=== PATIENT | female | born 1945 | race Caucasian/White ===

== ENCOUNTER 2016-11-16 20:17 | Inpatient (IN) ==
[2016-11-16 20:57] LABS: Basophils % 0.2 %; Eosinophils # 0.1 K/mcL (0.0-0.6); Eosinophils % 1.7 %; Hematocrit 38.9 % (35.3-44.9); Hemoglobin 12.9 g/dL (11.5-15.4); Immature Granulocytes % 0.4 % (0-4); Lymphocytes # 1.7 K/mcL (0.6-4.6); Lymphocytes % 30.4 %; Mean Corpuscular HGB Conc 33.2 g/dL (31.6-35.5); Mean Corpuscular Hemoglobin 28.5 pg (28.0-33.3); Mean Corpuscular Volume 86.1 fL (83.0-100.0); Mean Platelet Volume 10.9 fL (9.4-12.4); Monocytes # 0.4 K/mcL (0.0-1.3); Monocytes % 6.8 %; Neutrophils # 3.3 K/mcL (1.6-8.9); Platelet Count 100 K/mcL (140-400); Red Blood Count 4.52 M/mcL (3.82-4.97); Red Cell Distribution Width 12.8 % (11.5-14.5); Segmented Neutrophils % 60.5 %
[2016-11-16 21:11] LABS: Albumin 3.1 g/dL (3.5-5.0); Albumin/Globulin Ratio 0.8 (1.1-2.2); Bilirubin,Direct 0.2 mg/dL (0.0-0.5); Bilirubin,Indirect 0.1 mg/dL (0.0-1.2); Bilirubin,Total 0.3 mg/dL (0.2-1.2); Calcium 9.2 mg/dL (8.6-10.8); Globulin 3.7 g/dL (2.4-3.5); Potassium 3.5 mEq/L (3.5-4.5); Total Protein 6.8 g/dL (6.0-8.3)
[2016-11-16 21:17] LABS: Bilirubin,Urine Negative (Negative); Blood,Urine Negative (Negative); Clarity,Urine Cloudy (Clear); Color,Urine Dark Yellow (Yellow); Glucose,Urine (UA) 500 mg/dL (Normal); Ketones,Urine Negative (Negative); Leukocyte Esterase,Urine Moderate (Negative); Nitrite,Urine Negative (Negative); Protein,Urine Trace mg/dL (Neg-Trace); Specific Gravity,Urine > 1.030 (1.010-1.025); Urobilinogen,Urine Normal (Normal)
[2016-11-16 21:20] LABS: Bacteria,Urine Moderate per hpf (None-Few); Hyaline Casts,Urine None Seen per lpf (None-Few); RBC,Urine 0-3 per hpf (0-3); Squamous Epithelial Cell,Urine Many per lpf (None-Few); WBC,Urine 50-100 per hpf (0-3)
[2016-11-16] MEDS ORDERED: MetroNIDAZOLE 500 MG/100 ML 500 MG/100 ML BAG IVPB ONE (22:02)
[2016-11-16] MEDS ORDERED: *HR* Morphine 2 MG/ML SYRINGE IVP ONE (22:02)
--- NOTE | 2016-11-16 22:06 | Emergency Department Note ---
START Narrative - START START: I, Alvaro Quesada, examined this patient and my medical decision-making was reviewed with the [employer] WINDER OPERATOR/PA/Advanced Practice Nurse/Resident Physician. I agree with the documented findings, disposition and treatment plan as described except to the extent set forth below. 70-year-old female presents with concerns of right lower quadrant abdominal pain. Patient states that she is unable to tolerate by mouth intake over the past few days secondary to her pain. Patient denies dysuria, hematuria, vaginal bleeding, vaginal discharge. She denies hematochezia. She does state that she has had one episode of dark stool however she thinks it was after taking Pepto-Bismol. Patient denies near syncopal symptoms, chest pain, shortness of breath. She does feel increasingly weak and fatigued over the past few days. Patient has tenderness to palpation of the right lower quadrant on exam. There is mild guarding without evidence of rigidity or rebound. CT of the abdomen shows acute uncomplicated diverticulitis. Patient will be started on Cipro and Flagyl emergency department. She will be admitted to hospital for further care and evaluation as she is not tolerating by mouth intake well at home.
[2016-11-16] MEDS ORDERED: *HR* HYDROmorphone (PF) 1 MG/ML SYRINGE IVP ONE (22:20)
[2016-11-16] MEDS ORDERED: Levofloxacin 750 MG/150 ML 750 MG/150 ML BAG IVPB ONE (22:22)
--- NOTE | 2016-11-16 22:36 | Emergency Department Note ---
Disposition Clinical Impression: Nausea Diverticulitis Qualifiers: Diverticulitis site: small intestine Diverticulitis bleeding: without bleeding Diverticulitis complication: without perforation or abscess Qualified Code(s): K57.12 - Diverticulitis of small intestine without perforation or abscess without bleeding Diarrhea Qualifiers: Diarrhea type: infectious Qualified Code(s): A09 - Infectious gastroenteritis and colitis, unspecified Abdominal pain Qualifiers: Abdominal location: lower abdomen, unspecified Qualified Code(s): R10.30 - Lower abdominal pain, unspecified Disposition: Admitted As Inpatient Condition: Fair Time of Disposition: 22:00 Abdominal Pain HPI - General Chief Complaint: ED Abdominal Pain Stated Complaint: lower abd pain Time Seen by Provider: 11/16/16 20:53 Source: patient Nursing Notes Reviewed: Yes Vital Signs Reviewed: Yes - History of Present Illness HPI Narrative: Patient is a 70-year-old female with a history of asthma, diabetes and renal insufficiency. Patient states that 3 days ago she had sudden onset of diarrhea and lower abdominal pain. Patient states she had 12 bouts diarrhea per day of final brown watery. Patient's daughter states that 1 day ago they went and got anti-diarrheal medication but symptoms worsened. Patient had worsening abdominal pain, and early satiety and onset of nausea. Patient is not to the ED for evaluation. Pain Scale: 7 - Related Data Home Medications Medication Instructions Recorded Confirmed ALPRAZolam [Xanax 0.5 MG Tablet] 0.5 mg PO BID PRN 10/16/16 11/16/16 Albuterol Sulfate [Ventolin Hfa] 2 puff IH Q6H PRN 10/16/16 11/16/16 Ammonium Lactate [Lac-Hydrin Five] 1 appl TP DAILY 10/16/16 11/16/16 Cholecalciferol (Vitamin D3) 1,000 unit PO DAILY 10/16/16 11/16/16 [Vitamin D3] Citalopram Hydrobromide 10 mg PO HS 10/16/16 11/16/16 [Citalopram HBr] Docusate Sodium [Dok] 100 mg PO DAILY 10/16/16 11/16/16 Esomeprazole Magnesium [Nexium] 40 mg PO DAILY 10/16/16 11/16/16 Furosemide [Lasix] 20 mg PO QAM PRN 10/16/16 11/16/16 Gabapentin [Neurontin] 400 mg PO TID 10/16/16 11/16/16 Lidocaine Patch [Lidoderm 5% patch] 1 each TP DAILY PRN 10/16/16 11/16/16 Losartan Potassium [Cozaar] 100 mg PO DAILY 10/16/16 11/16/16 Magnesium Oxide [Mag-Ox] 400 mg PO BID 10/16/16 11/16/16 Saxagliptin HCl [Onglyza] 5 mg PO DAILY 10/16/16 11/16/16 Trazodone HCl 200 mg PO HS 10/16/16 11/16/16 BuPROPion SR (12 HR) [Wellbutrin 150 mg PO BID 11/16/16 11/16/16 SR] Cyclosporine [Restasis] 1 drop PO BID 11/16/16 11/16/16 Donepezil [Aricept] 5 mg PO HS 11/16/16 11/16/16 Melatonin 10 mg PO HS 11/16/16 11/16/16 Previous Rx's Medication Instructions Recorded HYDROcodone/Acet 7.5/325 mg [[place] 1 tab PO TID PRN #15 10/16/16 7.5-325 mg] Allergies Allergy/AdvReac Type Severity Reaction Status Date / Time No Known Allergies Allergy Verified 11/16/16 20:24 Review of Systems: Patient admits abdominal pain, nausea, diarrhea, confusion but denies fever, chills, chest pain, shortness of breath, dysuria, hematuria, hematochezia, melena. All systems ED: reviewed and negative except as stated. Review of Systems: As Per HPI Abdominal Pain PMH - Past Medical History Medical history: Reports: asthma, diabetes, GERD, hyperlipidemia, hypertension, other Female Surgical History: Reports: cholecystectomy, other Psychiatric history: Reports: no psych history - Social History Smoking status: Never smoker Alcohol use: Reports: none Drug use: Reports: none Physical Exam - General Limitations: no limitations General appearance: alert - Head Head exam: atraumatic, normocephalic, normal inspection - Eye Eye exam: Present: normal appearance, PERRL, EOMI - ENT ENT exam: normal exam, normal oropharynx, mucous membranes moist - Neck Neck exam: Present: normal inspection, full ROM, trachea midline - Chest Chest inspection: Present: normal inspection, symmetric chest wall rise - Respiratory Respiratory exam: Present: normal lung sounds bilaterally. Absent: respiratory distress, wheezes - Cardiovascular Cardiovascular exam: Present: regular rate, normal rhythm, normal heart sounds - Abdominal Exam Abdominal exam: Present: soft, tenderness, hyperactive bowel sounds. Absent: distention, guarding, rebound, rigidity Abdominal tenderness: Present: RLQ, LLQ, suprapubic - Extremities Exam Extremities exam: Present: normal inspection, full ROM. Absent: tenderness, pedal edema - Expanded Lower Extremity Exam Hip/Pelvis exam: Present: normal inspection, full ROM Course - Reevaluation(s) Reevaluation #1: Patient seen and examined. Labs and CT abdomen and pelvis ordered. Time: 21:20 Vital Signs Temperature 98.1 F 11/16/16 20:18 Pulse Rate 70 11/16/16 20:18 Respiratory Rate 16 11/16/16 20:18 Blood Pressure 154/83 11/16/16 20:18 O2 Sat by Pulse Oximetry 96 11/16/16 20:18 Temperature 97.5 F L 11/17/16 00:40 Pulse Rate 70 11/17/16 00:40 Respiratory Rate 18 11/17/16 00:40 Blood Pressure 120/71 11/17/16 00:40 O2 Sat by Pulse Oximetry 93 11/17/16 00:40 Oxygen Delivery Oxygen Delivery Room Air Abdominal Pain - MDM Narrative Medical decision making narrative: Patient with lower abdominal pain, diarrhea, nausea 3 days concerning for appendicitis, diverticulitis, colitis, ischemic colitis, C. difficile. CT abdomen and pelvis was taken. Patient showed to have uncomplicated diverticulitis. Patient is started on IV normal saline, Zofran for nausea, Dilaudid for pain, levofloxacin and Flagyl. Patient admitted for continuation treatment. Patient's labs show renal insufficiency and a negative lactate. Patient is admitted and accepted by Dr. Renteria the hospitalist - Lab Data Lab results reviewed: Yes I reviewed the patient's lab results. Lab results narrative: Abdomen/Pelvis CT 11/16/16 21:14 IMPRESSION: Evidence of acute uncomplicated sigmoid colonic diverticulitis. D/ / Lindsey Bazan Cha, MD / Lindsey Bazan Cha, MD Interpreting Provider: Lindsey Bazan Cha, MD Result diagrams: 11/16/16 20:44 11/16/16 20:44 Lab Results 11/16/16 11/16/16 11/16/16 Range/Units 20:44 20:44 21:06 WBC 5.4 (4.3-11.1) K/mcL RBC 4.52 (3.82-4.97) M/mcL Hgb 12.9 (11.5-15.4) g/dL Hct 38.9 (35.3-44.9) % MCV 86.1 (83.0-100.0) fL MCH 28.5 (28.0-33.3) pg MCHC 33.2 (31.6-35.5) g/dL RDW 12.8 (11.5-14.5) % Plt Count 100 L (140-400) K/mcL MPV 10.9 (9.4-12.4) fL Immature Gran % 0.4 (0-4) % Seg Neutrophils % 60.5 % Lymphocytes % 30.4 % Monocytes % 6.8 % Eosinophils % 1.7 % Basophils % 0.2 % Neutrophils # 3.3 (1.6-8.9) K/mcL Lymphocytes # 1.7 (0.6-4.6) K/mcL Monocytes # 0.4 (0.0-1.3) K/mcL Eosinophils # 0.1 (0.0-0.6) K/mcL Basophils # 0.0 (0.0-0.2) K/mcL Sodium 138 (136-145) mEq/L Potassium 3.5 (3.5-4.5) mEq/L Chloride 100 (98-109) mEq/L Carbon Dioxide 30 H (19-29) mEq/L BUN 21 H (7-20) mg/dL Creatinine 1.37 H (0.57-1.11) mg/dL Est GFR ( Amer) 46 L (> 60) Est GFR (Non-Af Amer) 38 L (> 60) BUN/Creatinine Ratio 15 (6-26) Glucose 256 H (70-99) mg/dL Calculated Osmolality 298 (280-300) Lactic Acid (0.5-2.2) mmol/L Calcium 9.2 (8.6-10.8) mg/dL Total Bilirubin 0.3 (0.2-1.2) mg/dL Direct Bilirubin 0.2 (0.0-0.5) mg/dL Indirect Bilirubin 0.1 (0.0-1.2) mg/dL AST 11 (5-34) Units/L ALT 17 (0-55) Units/L Alkaline Phosphatase 65 (38-126) Units/L Serum Total Protein 6.8 (6.0-8.3) g/dL Albumin 3.1 L (3.5-5.0) g/dL Globulin 3.7 H (2.4-3.5) g/dL Albumin/Globulin Ratio 0.8 L (1.1-2.2) Lipase 18 (8-78) Units/L Urine Color Dark Yellow (Yellow) Urine Clarity Cloudy A (Clear) Urine pH 6.0 (5.0-8.0) pH Units Ur Specific [place] > 1.030 H (1.010-1.025) Urine Protein Trace (Neg-Trace) mg/dL Urine Glucose (UA) 500 H (Normal) mg/dL Urine Ketones Negative (Negative) mg/dL Urine Blood Negative (Negative) Urine Nitrite Negative (Negative) Urine Bilirubin Negative (Negative) Urine Urobilinogen Normal (Normal) mg/dL Ur Leukocyte Esterase Moderate H (Negative) Urine Microscopic RBC 0-3 (0-3) per hpf Urine Microscopic WBC 50-100 H (0-3) per hpf Ur Squamous Epith Cells Many H (None-Few) per lpf Urine Bacteria Moderate H (None-Few) per hpf Hyaline Casts None Seen (None-Few) per lpf Ur Culture Indicated? YES A (NO) 11/16/16 Range/Units 22:32 WBC (4.3-11.1) K/mcL RBC (3.82-4.97) M/mcL Hgb (11.5-15.4) g/dL Hct (35.3-44.9) % MCV (83.0-100.0) fL MCH (28.0-33.3) pg MCHC (31.6-35.5) g/dL RDW (11.5-14.5) % Plt Count (140-400) K/mcL MPV (9.4-12.4) fL Immature Gran % (0-4) % Seg Neutrophils % % Lymphocytes % % Monocytes % % Eosinophils % % Basophils % % Neutrophils # (1.6-8.9) K/mcL Lymphocytes # (0.6-4.6) K/mcL Monocytes # (0.0-1.3) K/mcL Eosinophils # (0.0-0.6) K/mcL Basophils # (0.0-0.2) K/mcL Sodium (136-145) mEq/L Potassium (3.5-4.5) mEq/L Chloride (98-109) mEq/L Carbon Dioxide (19-29) mEq/L BUN (7-20) mg/dL Creatinine (0.57-1.11) mg/dL Est GFR ( Amer) (> 60) Est GFR (Non-Af Amer) (> 60) BUN/Creatinine Ratio (6-26) Glucose (70-99) mg/dL Calculated Osmolality (280-300) Lactic Acid 1.3 (0.5-2.2) mmol/L Calcium (8.6-10.8) mg/dL Total Bilirubin (0.2-1.2) mg/dL Direct Bilirubin (0.0-0.5) mg/dL Indirect Bilirubin (0.0-1.2) mg/dL AST (5-34) Units/L ALT (0-55) Units/L Alkaline Phosphatase (38-126) Units/L Serum Total Protein (6.0-8.3) g/dL Albumin (3.5-5.0) g/dL Globulin (2.4-3.5) g/dL Albumin/Globulin Ratio (1.1-2.2) Lipase (8-78) Units/L Urine Color (Yellow) Urine Clarity (Clear) Urine pH (5.0-8.0) pH Units Ur Specific [place] (1.010-1.025) Urine Protein (Neg-Trace) mg/dL Urine Glucose (UA) (Normal) mg/dL Urine Ketones (Negative) mg/dL Urine Blood (Negative) Urine Nitrite (Negative) Urine Bilirubin (Negative) Urine Urobilinogen (Normal) mg/dL Ur Leukocyte Esterase (Negative) Urine Microscopic RBC (0-3) per hpf Urine Microscopic WBC (0-3) per hpf Ur Squamous Epith Cells (None-Few) per lpf Urine Bacteria (None-Few) per hpf Hyaline Casts (None-Few) per lpf Ur Culture Indicated? (NO) - Radiology Data Radiology results reviewed: Yes I reviewed the patient's radiology results. Abdomen/Pelvis CT 11/16/16 21:14
[2016-11-16] MEDS: 0.9 % Sodium Chloride 1,000 ML IVC SCH (23:07)
[2016-11-17] MEDS ORDERED: Naloxone 0.4 MG/ML INJ IVP PRN (00:09)
[2016-11-17] MEDS ORDERED: Ondansetron 4 MG/2 ML VIAL IVP PRN (00:09)
[2016-11-17] MEDS ORDERED: Dextrose Gel 15 GM PO PRN ×2 (00:15)
[2016-11-17] MEDS ORDERED: 0.9 % Sodium Chloride 1,000 ML IVC SCH (00:15)
[2016-11-17] MEDS ORDERED: *HR* Dextrose 50 % in Water (Syg) 50 ML SYRINGE IVP PRN (00:15)
[2016-11-17] MEDS ORDERED: D5% in Water 1,000 ML IVC PRN (00:15)
--- NOTE | 2016-11-17 00:20 | Internal Med History&Physical ---
<Shyam Blackburn - Last Filed: 11/17/16 00:17> Date of Encounter: 11/17/16 Time of Encounter: 00:17 Assessment and Plan (1) Diverticulitis Current visit: Yes Status: Acute 62-year-old female who presents with left lower quadrant stabbing abdominal pain for 3 days with multiple bouts of diarrhea. CT abdomen pelvis shows uncomplicated sigmoid colon diverticulitis Afebrile, WBC within normal limits, lipase within normal limits, lactic acid within normal limits History of CKD, kidney function baseline Hemoglobin within normal limits Plan: IV fluids, Cipro, Flagyl Clear liquid diet Nausea and pain control GI prophylaxis Recommend outpatient colonoscopy 6 weeks after resolution of diverticulitis. We will hold patient's Lasix as she reported multiple bouts of diarrhea. Qualifiers: Diverticulitis site: large intestine Diverticulitis bleeding: without bleeding Diverticulitis complication: without perforation or abscess Qualified Code(s): K57.32 - Diverticulitis of large intestine without perforation or abscess without bleeding (2) Diabetes mellitus Current visit: Yes Status: Acute History of diabetes mellitus Last hemoglobin A1c 6.9 Controlled Plan: Patient will be on a clear liquid diet, diabetic diet. ACHS Low-dose sliding scale insulin with weight-based regimen Qualifiers: Diabetes mellitus type: type 2 Diabetes mellitus complication status: with unspecified complications Diabetes mellitus buttermaker continuous churn insulin use: without correction use Qualified Code(s): E11.8 - Type 2 diabetes mellitus with unspecified complications (3) Dementia Current visit: Yes Status: Acute Patient's history of dementia. On donepezil. Currently alert oriented 3. Plan: Continue donepezil. Qualifiers: Dementia type: unspecified type Dementia behavioral disturbance: without behavioral disturbance Qualified Code(s): F03.90 - Unspecified dementia without behavioral disturbance (4) GERD (gastroesophageal reflux disease) Current visit: Yes Status: Acute Patient's history of gastric reflux Denies epigastric pain. Plan: Pepcid Qualifiers: Esophagitis presence: esophagitis presence not specified Qualified Code(s) : K21.9 - Gastro-esophageal reflux disease without esophagitis (5) Depression with anxiety Current visit: Yes Status: Acute Patient has a history of anxiety and depression. Stable Plan: Continue home medications. (6) DVT prophylaxis Current visit: Yes Status: Acute Heparin subcutaneous (7) Hypertension Current visit: Yes Status: Acute History of hypertension, controlled. Plan: Continue losartan Qualifiers: Hypertension type: essential hypertension Qualified Code(s): I10 - Essential (primary) hypertension Internal Medicine - H&P: HPI Chief complaint: LLQ pain Admitted From: Home Plans for Post Hospital Care: Home History of present illness: Ms. Doe is a 70 year old female with chief complaint of left lower quadrant abdominal pain that started 3 days ago described as stabbing and radiation to the rest of the abdomen. Pain worsens with movement and improved with narcotic pain medication. Patient also had nausea without vomiting and according to patient's daughter Jaylene once her diarrhea for the past 3 days that is watery, nonbloody, non-mucousy. Patient tried Imodium to help the diarrhea however this made symptoms worse. Denies hematochezia, melena. Patient denies fevers, chills, rash, chest pain, shortness of breath, dysuria, urinary frequency, urinary urgency. Patient states last colonoscopy was 20 years ago and she had polyps removed. Denies previous history of diverticulitis. Reports early satiety, and poor oral intake for the last 24 hours. Past Med Surg Social Fam HX - Past Medical History Medical history: asthma, diabetes, GERD, hyperlipidemia, hypertension, other Psychiatric history: no psych history - Past Surgical History Surgical History: appendectomy, cataract, cholecystectomy, orthopedic, other - Social History Smoking Status: Never smoker Smokeless Tobacco Status: No Alcohol use: none Drug use: none - Additional Family History Additional family history: non-contributory Internal Medicine - H&P: Meds ALPRAZolam [Xanax 0.5 MG Tablet] 0.5 mg PO BID PRN 10/16/16 [History] Albuterol Sulfate [Ventolin Hfa] 2 puff IH Q6H PRN 10/16/16 [History] Ammonium Lactate [Lac-Hydrin Five] 1 appl TP DAILY 10/16/16 [History] Cholecalciferol (Vitamin D3) [Vitamin D3] 1,000 unit PO DAILY 10/16/16 [History] Citalopram Hydrobromide [Citalopram HBr] 10 mg PO HS 10/16/16 [History] Docusate Sodium [Dok] 100 mg PO DAILY 10/16/16 [History] Esomeprazole Magnesium [Nexium] 40 mg PO DAILY 10/16/16 [History] Furosemide [Lasix] 20 mg PO QAM PRN 10/16/16 [History] Gabapentin [Neurontin] 400 mg PO TID 10/16/16 [History] HYDROcodone/Acet 7.5/325 mg [[place] 7.5-325 mg] 1 tab PO TID PRN #15 10/16/16 [ Rx] Lidocaine Patch [Lidoderm 5% patch] 1 each TP DAILY PRN 10/16/16 [History] Losartan Potassium [Cozaar] 100 mg PO DAILY 10/16/16 [History] Magnesium Oxide [Mag-Ox] 400 mg PO BID 10/16/16 [History] Saxagliptin HCl [Onglyza] 5 mg PO DAILY 10/16/16 [History] Trazodone HCl 200 mg PO HS 10/16/16 [History] BuPROPion SR (12 HR) [Wellbutrin SR] 150 mg PO BID 11/16/16 [History] Cyclosporine [Restasis] 1 drop PO BID 11/16/16 [History] Donepezil [Aricept] 5 mg PO HS 11/16/16 [History] Melatonin 10 mg PO HS 11/16/16 [History] 3 Allergy/AdvReac Type Severity Reaction Status Date / Time No Known Allergies Allergy Verified 11/16/16 20:24 All Systems PM: A 10-system review of systems was performed and is negative for pertinent findings except as documented above in the HPI. Review of systems: Constitutional: Denies fever, chills HEENT: Denies headache, vision changes, neck pain, sore throat, rhinorrhea Heart: Denies chest pain palpitations Lungs: Denies shortness of breath cough Abdomen: Reports abdominal pain, nausea, diarrhea. Denies vomiting Back: Denies back pain Kidney: Denies dysuria, hematuria Skin: warm and dry Extremities: Denies swelling, pain Neuro: Denies numbness, and tingling - Constitutional Vitals: Temp Pulse Resp BP Pulse Ox 98.1 F 70 18 148/85 96 11/16/16 20:18 11/16/16 20:18 11/17/16 00:08 11/17/16 00:08 11/16/16 20:18 - Other Additional findings: General: Pleasant elderly female without distress HEENT: Head atraumatic, normocephalic, EOMI, PERRLA, neck nontender to palpation , absent lymphadenopathy, Moist Mucous Membranes, Heart: Regular rate and rhythm with no murmur Lungs: Clear to auscultation bilaterally Abdomen: Soft mild tenderness to left lower quadrant palpation, positive bowel sounds, nondistended, absent carting, absent rigidity, absent organomegaly Skin: warm and dry Extremities: 1+ pedal edema bilaterally Neuro: Cranial nerves II through XII intact, UE and LE sensation equal bilaterally, UE and LEstrength 5/5, alert oriented 3, Vascular: Pedal and radial pulses 2 out of 4 Internal Med - H&P Results - Labs CBC & Chem 7: 11/16/16 20:44 11/16/16 20:44 <Stuart Renteria - Last Filed: 11/17/16 04:39> Date of Encounter: 11/17/16 Internal Medicine - H&P: HPI History of present illness: Ms. Doe is a 70 year old female All Systems PM: A 10-system review of systems was performed and is negative for pertinent findings except as documented above in the HPI. - Constitutional Vitals: Temp Pulse Resp BP Pulse Ox 97.5 F L 70 18 120/71 93 11/17/16 00:40 11/17/16 00:40 11/17/16 00:40 11/17/16 00:40 11/17/16 00:40 Internal Med - H&P Results - Labs CBC & Chem 7: 11/16/16 20:44 11/16/16 20:44 - Attending Attestation I examined this patient and my medical decision-making was reviewed with the Resident Physician, Dr. Shyam Blackburn. I agree with the documented findings, disposition and treatment plan as described except to the extent set forth below. I have independently obtained history and examined the patient and my findings are summarized below: Patient presented to the hospital with abdominal pain and nausea and diarrhea. She had taken a course of antibiotics outpatient but her symptoms were getting worse Currently on exam she is in no acute distress, she has mild tenderness in the right lower quadrant. Heart is regular, lungs are clear. Assessment and plan: Acute diverticulitis which failed outpatient treatment. We will admit her to our service, we will treat her with IV Cipro and Flagyl, IV fluids, IV morphine for pain.
[2016-11-17] MEDS: traZODone 50 MG TABLET PO SCH ×2 (02:23→21:01)
[2016-11-17] MEDS: *HR* Morphine 2 MG/ML SYRINGE IVP PRN ×2 (03:09→16:35)
[2016-11-17 05:20] LABS: Mean Corpuscular HGB Conc 33.1 g/dL (31.6-35.5)
[2016-11-17 05:23] LABS: Basophils % 0.2 %; Eosinophils # 0.1 K/mcL (0.0-0.6); Eosinophils % 1.6 %; Hematocrit 35.6 % (35.3-44.9); Hemoglobin 11.8 g/dL (11.5-15.4); Immature Granulocytes % 0.4 % (0-4); Immature Platelets 7.2 % (1.1-6.1); Lymphocytes # 1.5 K/mcL (0.6-4.6); Lymphocytes % 31.4 %; Mean Corpuscular Hemoglobin 28.8 pg (28.0-33.3); Mean Corpuscular Volume 86.8 fL (83.0-100.0); Mean Platelet Volume 11.3 fL (9.4-12.4); Monocytes # 0.3 K/mcL (0.0-1.3); Monocytes % 6.6 %; Neutrophils # 2.9 K/mcL (1.6-8.9); Red Cell Distribution Width 12.7 % (11.5-14.5); Segmented Neutrophils % 59.8 %
[2016-11-17 05:31] LABS: Platelet Count 95 K/mcL (140-400)
[2016-11-17 05:34] LABS: Calcium 8.6 mg/dL (8.6-10.8); Potassium 3.2 mEq/L (3.5-4.5)
[2016-11-17] MEDS: *HR* Heparin 5,000 UNIT/ML VIAL SQ SCH ×3 (05:37→21:00)
[2016-11-17] MEDS ORDERED: Famotidine 20 MG TABLET PO SCH (07:30)
[2016-11-17] MEDS: Cyclosporine [Restasis] OP SCH ×2 (09:23→20:33)
[2016-11-17] MEDS: Magnesium Oxide 400 MG TABLET PO SCH ×2 (09:40→21:01)
[2016-11-17] MEDS: BuPROPion SR (12 HR) 150 MG TABLET PO SCH ×2 (09:40→21:02)
[2016-11-17] MEDS: Ondansetron 4 MG/2 ML VIAL IVP PRN ×2 (09:40→15:35)
[2016-11-17] MEDS: Gabapentin 400 MG CAPSULE PO SCH ×3 (09:40→21:02)
[2016-11-17] MEDS: MetroNIDAZOLE 500 MG/100 ML 500 MG/100 ML BAG IVPB SCH ×3 (09:41→23:34)
[2016-11-17] MEDS: Insulin LISPRO 300 UNITS/3 ML VIAL SQ SCH ×7 (09:55→21:58)
[2016-11-17] MEDS ORDERED: *HR* Promethazine 25 MG/ML VIAL IVP PRN (11:38)
--- NOTE | 2016-11-17 12:41 | Event Note ---
Date of Encounter: 11/17/16 Time of Encounter: 09:20 Patient continues to have lower abdominal pain especially in the right lower quadrant. Also having nausea and vomiting. Has not had a bowel movement yet. Place patient nothing by mouth. IV fluids, continue antibiotics. Antiemetics. And pain control.
[2016-11-17] MEDS: 0.9 % Sodium Chloride w KCl 20 MEQ/1,000 ML MLS IVC SCH ×2 (13:04→23:37)
[2016-11-17] MEDS ORDERED: traZODone 50 MG TABLET PO SCH (21:00)
[2016-11-17] MEDS ORDERED: Insulin LISPRO 300 UNITS/3 ML VIAL SQ SCH (21:00)
[2016-11-17] MEDS: *HR* HYDROcodone/Acet 7.5/325 mg TABLET PO PRN (21:01)
[2016-11-17] MEDS: Melatonin 3 MG TABLET PO SCH (21:02)
[2016-11-17] MEDS: Insulin DETEMIR 100 UNIT/ML X5UNITS SQ SCH (21:57)
[2016-11-18] MEDS: *HR* Heparin 5,000 UNIT/ML VIAL SQ SCH ×3 (06:15→22:03)
[2016-11-18] MEDS: Insulin LISPRO 300 UNITS/3 ML VIAL SQ SCH ×7 (07:48→20:45)
[2016-11-18] MEDS: Cyclosporine [Restasis] OP SCH ×2 (07:58→20:44)
[2016-11-18] MEDS: Magnesium Oxide 400 MG TABLET PO SCH ×2 (07:59→20:43)
[2016-11-18] MEDS: Gabapentin 400 MG CAPSULE PO SCH ×3 (07:59→20:43)
[2016-11-18] MEDS: Famotidine 20 MG TABLET PO SCH (07:59)
[2016-11-18] MEDS: BuPROPion SR (12 HR) 150 MG TABLET PO SCH ×2 (07:59→20:43)
[2016-11-18] MEDS: MetroNIDAZOLE 500 MG/100 ML 500 MG/100 ML BAG IVPB SCH ×2 (08:01→15:38)
[2016-11-18] MEDS: 0.9 % Sodium Chloride w KCl 20 MEQ/1,000 ML MLS IVC SCH (10:54)
--- NOTE | 2016-11-18 12:33 | Internal Med Progress Note ---
Date of Encounter: 11/18/16 Time of Encounter: 09:20 - Assessment and plan (1) Diverticulitis Current Visit: Yes Status: Acute Assessment and plan: Patient with acute uncomplicated sigmoid diverticulitis. Improving clinically. Will start patient on clear liquid diet and advance as tolerated. Continue antibiotics. Continue IV hydration for now. Moderate risk for complications. Qualifiers: Diverticulitis site: large intestine Diverticulitis bleeding: without bleeding Diverticulitis complication: without perforation or abscess Qualified Code(s): K57.32 - Diverticulitis of large intestine without perforation or abscess without bleeding (2) Diabetes mellitus Current Visit: Yes Status: Chronic Assessment and plan: Blood sugars are much better controlled. Continue current insulin regimen. Qualifiers: Diabetes mellitus type: type 2 Diabetes mellitus complication status: with unspecified complications Diabetes mellitus mcc insulin use: without terminal manager use Qualified Code(s): E11.8 - Type 2 diabetes mellitus with unspecified complications (3) Dementia Current Visit: Yes Status: Chronic Assessment and plan: On Aricept. Qualifiers: Dementia type: unspecified type Dementia behavioral disturbance: without behavioral disturbance Qualified Code(s): F03.90 - Unspecified dementia without behavioral disturbance (4) GERD (gastroesophageal reflux disease) Current Visit: Yes Status: Chronic Assessment and plan: Continue Pepcid Qualifiers: Esophagitis presence: esophagitis presence not specified Qualified Code(s) : K21.9 - Gastro-esophageal reflux disease without esophagitis (5) Depression with anxiety Current Visit: Yes Status: Chronic Assessment and plan: Patient uses Xanax as needed and trazodone at home. Continue these medications (6) DVT prophylaxis Current Visit: Yes Status: Acute (7) Hypertension Current Visit: Yes Status: Chronic Assessment and plan: Well-controlled Qualifiers: Hypertension type: essential hypertension Qualified Code(s): I10 - Essential (primary) hypertension - Subjective Interval history: Patient is feeling better today. Feels hungry but pain is better controlled. No new episodes of nausea or vomiting this morning. No episodes of diarrhea. - Constitutional Vitals: Temp Pulse Resp BP Pulse Ox 98.2 F 66 16 132/62 95 11/18/16 10:44 11/18/16 10:44 11/18/16 10:44 11/18/16 10:44 11/18/16 10:44 General appearance: Present: cooperative, A&O X 3, obese, answers questions appropriately - Neck Neck exam general surgery: Present: supple, trachea midline. Absent: lymphadenopathy - Respiratory Respiratory exam: Present: CTAB. Absent: accessory muscle use, rales, rhonchi, wheezes - Cardiovascular Cardiovascular exam: Present: RRR, +S1, +S2. Absent: diastolic murmur, gallop, rubs, systolic murmur - GI/Abdominal GI/Abdominal exam: Present: normal bowel sounds, soft, tenderness, no peritoneal signs. Absent: distended Additional comments: Left lower quadrant tenderness - Extremities Exam Extremities exam: Present: warm, radial pulses palpable and symmetrical. Absent : calf tenderness, cyanotic, pedal edema - Skin Skin exam: Present: dry, intact Internal Medicine: Result - Labs CBC & Chem 7: 11/17/16 03:06 11/17/16 03:06 Consult Discharge Plan - Plan Referrals: Matthew Phelan MD [Primary Care Provider] -
[2016-11-18] MEDS: traZODone 50 MG TABLET PO SCH (20:43)
[2016-11-18] MEDS: *HR* HYDROcodone/Acet 7.5/325 mg TABLET PO PRN (20:43)
[2016-11-18] MEDS: Melatonin 3 MG TABLET PO SCH (20:43)
[2016-11-18] MEDS: Insulin DETEMIR 100 UNIT/ML X5UNITS SQ SCH (20:44)
[2016-11-19] MEDS: MetroNIDAZOLE 500 MG/100 ML 500 MG/100 ML BAG IVPB SCH ×3 (00:01→16:20)
[2016-11-19] MEDS: 0.9 % Sodium Chloride w KCl 20 MEQ/1,000 ML MLS IVC SCH ×3 (05:00→19:22)
[2016-11-19] MEDS: *HR* Heparin 5,000 UNIT/ML VIAL SQ SCH ×2 (05:17→14:04)
[2016-11-19] MEDS: Insulin LISPRO 300 UNITS/3 ML VIAL SQ SCH ×7 (08:49→20:50)
[2016-11-19] MEDS: BuPROPion SR (12 HR) 150 MG TABLET PO SCH ×2 (08:52→20:52)
[2016-11-19] MEDS: Magnesium Oxide 400 MG TABLET PO SCH ×2 (08:52→20:52)
[2016-11-19] MEDS: Famotidine 20 MG TABLET PO SCH (08:53)
[2016-11-19] MEDS: Gabapentin 400 MG CAPSULE PO SCH ×3 (08:53→20:52)
[2016-11-19] MEDS: Cyclosporine [Restasis] OP SCH (08:54)
[2016-11-19] MEDS: *HR* HYDROcodone/Acet 7.5/325 mg TABLET PO PRN (11:02)
[2016-11-19] MEDS ORDERED: *HR* Morphine 2 MG/ML SYRINGE IVP PRN (11:36)
[2016-11-19] MEDS: ALPRAZolam 0.5 MG TABLET PO PRN ×2 (14:04→20:52)
[2016-11-19 16:22] VITALS: BP 161/67
--- NOTE | 2016-11-19 16:49 | Discharge Summary ---
Date of Encounter: 11/20/16 Time of Encounter: 09:00 - Discharge Diagnosis (1) Diverticulitis Priority: Primary Status: Acute Qualifiers: Diverticulitis site: large intestine Diverticulitis bleeding: without bleeding Diverticulitis complication: without perforation or abscess Qualified Code(s): K57.32 - Diverticulitis of large intestine without perforation or abscess without bleeding (2) Diabetes mellitus Priority: Secondary Status: Chronic Qualifiers: Diabetes mellitus type: type 2 Diabetes mellitus complication status: with unspecified complications Diabetes mellitus watermelon inspector insulin use: without fdc use Qualified Code(s): E11.8 - Type 2 diabetes mellitus with unspecified complications (3) Dementia Priority: Secondary Status: Chronic Qualifiers: Dementia type: unspecified type Dementia behavioral disturbance: without behavioral disturbance Qualified Code(s): F03.90 - Unspecified dementia without behavioral disturbance (4) GERD (gastroesophageal reflux disease) Priority: Secondary Status: Chronic Qualifiers: Esophagitis presence: esophagitis presence not specified Qualified Code(s) : K21.9 - Gastro-esophageal reflux disease without esophagitis (5) Depression with anxiety Priority: Secondary Status: Chronic (6) Hypertension Priority: Secondary Status: Chronic Qualifiers: Hypertension type: essential hypertension Qualified Code(s): I10 - Essential (primary) hypertension (7) DVT prophylaxis Priority: Secondary Status: Acute - Discharge Medications Prescriptions: Ciprofloxacin [Cipro] 500 mg PO BID #14 tablet metroNIDAZOLE [Flagyl] 500 mg PO TID #21 tablet Home Medications: ALPRAZolam [Xanax 0.5 MG Tablet] 0.5 mg PO BID PRN 10/16/16 [History] Albuterol Sulfate [Ventolin Hfa] 2 puff IH Q6H PRN 10/16/16 [History] Ammonium Lactate [Lac-Hydrin Five] 1 appl TP DAILY 10/16/16 [History] Cholecalciferol (Vitamin D3) [Vitamin D3] 1,000 unit PO DAILY 10/16/16 [History] Citalopram Hydrobromide [Citalopram HBr] 10 mg PO HS 10/16/16 [History] Docusate Sodium [Dok] 100 mg PO DAILY 10/16/16 [History] Esomeprazole Magnesium [Nexium] 40 mg PO DAILY 10/16/16 [History] Furosemide [Lasix] 20 mg PO QAM PRN 10/16/16 [History] Gabapentin [Neurontin] 400 mg PO TID 10/16/16 [History] HYDROcodone/Acet 7.5/325 mg [[place] 7.5-325 mg] 1 tab PO TID PRN #15 10/16/16 [ Rx] Lidocaine Patch [Lidoderm 5% patch] 1 each TP DAILY PRN 10/16/16 [History] Losartan Potassium [Cozaar] 100 mg PO DAILY 10/16/16 [History] Magnesium Oxide [Mag-Ox] 400 mg PO BID 10/16/16 [History] Saxagliptin HCl [Onglyza] 5 mg PO DAILY 10/16/16 [History] Trazodone HCl 200 mg PO HS 10/16/16 [History] BuPROPion SR (12 HR) [Wellbutrin SR] 150 mg PO BID 11/16/16 [History] Cyclosporine [Restasis] 1 drop PO BID 11/16/16 [History] Donepezil [Aricept] 5 mg PO HS 11/16/16 [History] Melatonin 10 mg PO HS 11/16/16 [History] Ciprofloxacin [Cipro] 500 mg PO BID #14 tablet 11/19/16 [Rx] metroNIDAZOLE [Flagyl] 500 mg PO TID #21 tablet 11/19/16 [Rx] Allergies/Adverse Reactions: 3 Allergy/AdvReac Type Severity Reaction Status Date / Time No Known Allergies Allergy Verified 11/16/16 20:24 Date of admission: 11/17/16 04:35 Primary care physician: Matthew Phelan MD Consults: 11/17/16 16:19 Consult to Tumbling Barrel Painter [CONS] Routine Reason for SW Consult: DME needs. Discharging clinician: Cinthya Thomas Anticipated date of discharge: 11/19/16 - Patient Status Disposition: Home, Self-Care Condition: Good Functional capacity at discharge: independent ambulation Overall status at discharge: patient is progressing back to baseline - Discharge Instructions Instructions: Diverticulitis (DC), Diverticulosis (DC), Diabetes Mellitus Type 2 in Adults (DC), Diverticulitis Diet (DC) Follow Up With: Matthew Phelan MD [Primary Care Provider] - (in 1-2 weeks WEB REQUEST OFFICE WILL CALL WITH APPOINTMENT TIME) Agustina Lebron MD [Partnered Physician] - (in 3-4 weeks for colonoscopy WEB REQUEST. OFFICE WILL CALL WITH APPOINTMENT TIME) Additional Instructions: Follow-up appointments: If there is not an appointment listed below, please call your physician and schedule a follow-up appointment. If you have congestive heart failure and your symptoms return, make an appointment with your physician. Medication List: Carry an up to date list of medications you are taking at all time. We have given you an updated medication list including any new medications that you have been prescribed. Please provide that list to your primary provider Symptoms: If your condition changes or you experience any of the following symptoms, notify your physician immediately: Unusual or worsening pain, fever, persistent nausea and vomiting, bleeding, increase in swelling (especially in your legs), sudden weight gain, extreme dizziness, chest pain, increased drainage or redness from a wound or incision. Go to the emergency department if you experience a problem with breathing. Weights: If you have a history of swelling or shortness of breath, weigh yourself daily and notify your physician if you have a weight gain of two or more pounds in one day or 5 or more pounds in a week. If you experience any of the warning signs for stroke: Sudden numbness or weakness of the face, arm or leg; especially on one side of the body, sudden confusion, trouble speaking or understanding, sudden trouble seeing in one or both eyes, sudden trouble walking, dizziness, loss of balance or coordination, sudden sever headache with no cause; Call 911 or go to the emergency room. Stroke is a medical emergency. Some risk factors for stroke: Age, cigarette smoking, diabetes, excessive alcohol consumption, family history , high blood pressure, overweight, physical inactivity, prior stroke, heart attack, diagnosis of carotid artery stenosis or other artery disease. If you smoke, STOP: Smoking or tobacco use significantly increases your risk of heart and lung disease. Your chance of disease greatly increases if you continue to smoke. For more information, call the [place] tobacco quit line for smoking cessation QUIT-NOW ( ) - Diet and Activity Activity: increase activity as tolerated Diet: advance to your usual diet, other Hospital course: Ms. Doe is a 70 year old female patient with history of asthma, diabetes, gastroesophageal reflux disease, hypertension and hyperlipidemia was admitted here with acute diverticulitis. She denies any prior episode of diverticulitis and was having nausea and vomiting and diarrhea along with abdominal pain. CT scan of the abdomen and pelvis showed uncomplicated sigmoid diverticulitis. She was kept nothing by mouth, treated with IV antibiotics. As his symptoms improved she was started on clear liquid diet and is now tolerating soft diet well. She continues to have episodes of diarrhea although decreased in frequency. Her stool was tested for C. difficile and was found to be negative. At this time she is clinically stable to be discharged home as she is tolerating oral diet. She can follow up with her primary care provider for further management. I do recommend that she undergo colonoscopy as outpatient in 3-4 weeks. I will refer her to GI for this. - Time Spent with Patient Total time spent providing and/or coordinating discharge services: Greater than 30 minutes (35 min) - Constitutional Vitals: Temp Pulse Resp BP Pulse Ox 98.0 F 63 17 161/67 97 11/19/16 16:09 11/19/16 16:09 11/19/16 16:09 11/19/16 16:09 11/19/16 16:09 General appearance: Present: cooperative, A&O X 3, obese, answers questions appropriately - Respiratory Respiratory exam: Present: CTAB. Absent: accessory muscle use, rales, rhonchi, wheezes - Cardiovascular Cardiovascular exam: Present: RRR, +S1, +S2. Absent: diastolic murmur, gallop, rubs, systolic murmur - GI/Abdominal GI/Abdominal exam: Present: normal bowel sounds, soft, no peritoneal signs. Absent: distended, tenderness - Extremities Exam Extremities exam: Present: warm, radial pulses palpable and symmetrical. Absent : calf tenderness, cyanotic, pedal edema - Neurological Exam Neurological exam: Present: alert, oriented X3, no focal deficits. Absent: facial droop, speech deficit
[2016-11-19] MEDS: 0.9 % Sodium Chloride 1,000 ML IVC SCH (19:22)
[2016-11-19] MEDS: Insulin DETEMIR 100 UNIT/ML X5UNITS SQ SCH (20:51)
[2016-11-19] MEDS: Melatonin 3 MG TABLET PO SCH (20:52)
[2016-11-19] MEDS: traZODone 50 MG TABLET PO SCH (20:52)
== END 2016-11-19 21:10 | disposition home or self-care (01) | DRG 392 ==
LOC: EMEROO 20:17 → 3ANU 20:17
PROVIDERS: ADMIT Internal Medicine; ATTEND Internal Medicine

== ENCOUNTER 2017-11-04 17:49 | Observation (INO) ==
[2017-11-04 19:46] LABS: Bilirubin,Urine Negative (Negative); Blood,Urine Negative (Negative); Clarity,Urine Clear (Clear); Color,Urine Yellow (Yellow); Glucose,Urine (UA) Normal (Normal); Ketones,Urine Negative (Negative); Leukocyte Esterase,Urine Negative (Negative); Nitrite,Urine Negative (Negative); Protein,Urine Negative (Neg-Trace); Specific Gravity,Urine 1.012 (1.010-1.025); Urobilinogen,Urine Normal (Normal)
[2017-11-04 20:00] LABS: Basophils % 0.2 %; Eosinophils # 0.1 K/mcL (0.0-0.6); Eosinophils % 1.1 %; Hematocrit 45.2 % (35.3-44.9); Hemoglobin 15.1 g/dL (11.5-15.4); Immature Granulocytes % 0.4 % (0-4); Lymphocytes # 1.3 K/mcL (0.6-4.6); Lymphocytes % 23.7 %; Mean Corpuscular HGB Conc 33.4 g/dL (31.6-35.5); Mean Corpuscular Hemoglobin 29.7 pg (28.0-33.3); Mean Platelet Volume 11.7 fL (9.4-12.4); Monocytes # 0.4 K/mcL (0.0-1.3); Monocytes % 7.1 %; Neutrophils # 3.7 K/mcL (1.6-8.9); Platelet Count 122 K/mcL (140-400); Red Blood Count 5.08 M/mcL (3.82-4.97); Red Cell Distribution Width 12.1 % (11.5-14.5); Segmented Neutrophils % 67.5 %
[2017-11-04 20:19] LABS: BUN/Creatinine Ratio 12 (6-26); Blood Urea Nitrogen 17 mg/dL (8-23); Calcium 9.6 mg/dL (8.6-10.3); Carbon Dioxide 28 mEq/L (23-29); Chloride 101 mEq/L (98-107); Ethanol < 10 mg/dL (Less than 10); Glucose 105 mg/dL (70-105); Osmolality,Calculated 290 (280-300); Potassium 3.3 mEq/L (3.5-5.1); Sodium 139 mEq/L (136-145); Troponin I < 0.03 ng/mL (< 0.04); eGFR For Non-African Americans 35 (> 60)
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
[2017-11-04] MEDS ORDERED: Naloxone 0.4 MG/ML INJ IVP PRN (23:33)
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
[2017-11-04] MEDS ORDERED: Acetaminophen 325 MG TABLET PO PRN (23:52)
[2017-11-05] MEDS ORDERED: Furosemide 20 MG TABLET PO PRN (00:35)
[2017-11-05] MEDS ORDERED: Potassium Chloride Elixir 20 MEQ/15 ML UDC PO ONE (00:36)
[2017-11-05] MEDS ORDERED: *HR* Dextrose 50 % in Water (Syg) 50 ML SYRINGE IVP PRN (00:36)
[2017-11-05] MEDS ORDERED: Dextrose Gel 15 GM/37.5 ML TUBE PO PRN ×2 (00:36)
[2017-11-05] MEDS ORDERED: D5% in Water 1,000 ML IVC PRN (00:36)
[2017-11-05] MEDS: traZODone 50 MG TABLET PO SCH ×2 (02:12→21:51)
[2017-11-05] MEDS: Gabapentin 400 MG CAPSULE PO SCH ×4 (02:13→21:51)
[2017-11-05] MEDS: BuPROPion SR (12 HR) 150 MG TABLET PO SCH ×3 (02:13→21:51)
[2017-11-05] MEDS: Melatonin 3 MG TABLET PO SCH ×2 (02:14→21:50)
[2017-11-05 07:25] LABS: Calcium 9.4 mg/dL (8.6-10.3); Potassium 3.5 mEq/L (3.5-5.1)
[2017-11-05] MEDS: Cyclosporine [Restasis] PO SCH ×2 (08:56→21:53)
[2017-11-05] MEDS: Magnesium Oxide 400 MG TABLET PO SCH ×2 (08:56→21:43)
[2017-11-05] MEDS: Saxagliptin Hcl [Onglyza] 5 MG PO SCH (08:56)
[2017-11-05] MEDS: Cholecalciferol (D-3) 1,000 UNIT TABLET PO SCH (08:56)
[2017-11-05] MEDS: Insulin LISPRO 300 UNITS/3 ML VIAL SQ SCH ×3 (08:56→17:05)
[2017-11-05] MEDS: Ammonium Lactate 30 APPL/225 GM BOTTLE TP SCH (08:57)
[2017-11-05] MEDS ORDERED: Gabapentin 400 MG CAPSULE PO SCH (09:00)
[2017-11-05] MEDS ORDERED: BuPROPion SR (12 HR) 150 MG TABLET PO SCH (09:00)
[2017-11-05] MEDS: *HR* HYDROcodone/Acet 7.5/325 mg TABLET PO PRN ×2 (09:07→15:01)
[2017-11-05] MEDS: ALPRAZolam 0.5 MG TABLET PO PRN (09:07)
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
[2017-11-05] MEDS: Artificial Tears SOLN 15 ML BOTTLE BOTH EYES PRN (17:05)
--- NOTE | 2017-11-05 17:55 | Electrocardiograph Report ---
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
[2017-11-05] MEDS ORDERED: Melatonin 3 MG TABLET PO SCH (21:00)
[2017-11-05] MEDS ORDERED: Insulin LISPRO 300 UNITS/3 ML VIAL SQ SCH (21:00)
[2017-11-05] MEDS ORDERED: traZODone 50 MG TABLET PO SCH (21:00)
[2017-11-06 06:10] LABS: Basophils % 0.3 %; Eosinophils # 0.1 K/mcL (0.0-0.6); Eosinophils % 1.6 %; Hematocrit 37.9 % (35.3-44.9); Hemoglobin 12.6 g/dL (11.5-15.4); Immature Platelets 5.3 % (1.1-6.1); Lymphocytes # 1.5 K/mcL (0.6-4.6); Lymphocytes % 40.9 %; Mean Corpuscular HGB Conc 33.2 g/dL (31.6-35.5); Mean Corpuscular Hemoglobin 28.8 pg (28.0-33.3); Mean Corpuscular Volume 86.5 fL (83.0-100.0); Mean Platelet Volume 11.2 fL (9.4-12.4); Monocytes # 0.3 K/mcL (0.0-1.3); Monocytes % 7.3 %; Neutrophils # 1.9 K/mcL (1.6-8.9); Red Blood Count 4.38 M/mcL (3.82-4.97); Red Cell Distribution Width 12.5 % (11.5-14.5); Segmented Neutrophils % 49.9 %
[2017-11-06 06:11] LABS: Platelet Count 93 K/mcL (140-400)
[2017-11-06 06:30] LABS: Calcium 9.4 mg/dL (8.6-10.3); Potassium 3.4 mEq/L (3.5-5.1)
[2017-11-06] MEDS: Insulin LISPRO 300 UNITS/3 ML VIAL SQ SCH ×3 (08:13→16:21)
[2017-11-06] MEDS: Gabapentin 400 MG CAPSULE PO SCH ×2 (08:18→15:06)
[2017-11-06] MEDS: Saxagliptin Hcl [Onglyza] 5 MG PO SCH (08:18)
[2017-11-06] MEDS: Cholecalciferol (D-3) 1,000 UNIT TABLET PO SCH (08:18)
[2017-11-06] MEDS: Cyclosporine [Restasis] PO SCH (08:18)
[2017-11-06] MEDS: BuPROPion SR (12 HR) 150 MG TABLET PO SCH (08:18)
[2017-11-06] MEDS: Magnesium Oxide 400 MG TABLET PO SCH (08:18)
[2017-11-06] MEDS: Artificial Tears SOLN 15 ML BOTTLE BOTH EYES PRN (08:20)
[2017-11-06] MEDS: Ammonium Lactate 30 APPL/225 GM BOTTLE TP SCH (08:21)
[2017-11-06] MEDS: *HR* HYDROcodone/Acet 7.5/325 mg TABLET PO PRN ×2 (08:27→15:08)
[2017-11-06] MEDS: ALPRAZolam 0.5 MG TABLET PO PRN (08:28)
--- NOTE | 2017-11-06 10:06 | Internal Med Progress Note ---
Hospitalist Progress Note - Encounter Date of Encounter: 11/06/17 Time of Encounter: 10:06 - Subjective Interval History: Patient seen and examined at bedside. She is alert and oriented to name and place Follow simple command. Denies any pain or discomfort at this time - Exam Vitals: Temp Pulse Resp BP Pulse Ox 98.2 F 70 16 146/72 93 11/06/17 07:47 11/06/17 07:47 11/06/17 07:47 11/06/17 07:47 11/06/17 07:47 Exam: General: Alert and oriented x2 Skin:Normal color, no rash, no lesions. HEENT:EOM, pupils equal, round and reactive. Cardiovascular:Normal S1 & S2, no rubs, murmurs or gallops. No JVD. Pulse regular. Lungs:Normal breath sounds, no wheezes or crackles. Abdomen:Soft, non-tender, no rigidity. Extremities:No deformity, no edema or tenderness, no joint swelling or clubbing. Neurological:Normal cognition and motor skills. Pulses:Carotid and radial pulses normal +2. Rest of the physical exam is non contributory. - Assessment and Plan (1) Low blood potassium Current Visit: Yes Status: Acute Assessment and Plan: PO replacement ordered. cont to monitor-replace as needed (2) Family conflict Current Visit: Yes Status: Acute Assessment and Plan: card services specialist consult ordered.- Awaiting ECF placement (3) Back pain Current Visit: Yes Status: Acute Assessment and Plan: Tylenol PRN ordered.- Pain controlled at this time (4) CKD (chronic kidney disease) stage 3, GFR 30-59 ml/min Current Visit: Yes Status: Acute Assessment and Plan: Hx of cKD appears to be around baseline avoid nephrotoxins (5) Dementia Current Visit: Yes Status: Chronic Assessment and Plan: Hx of dementia- cont with Aricept Celexa-stable this time DVT Prophylaxis: SCD - Time Spent with Patient Total time spent is greater than 50% in coordination of care (as documented) at patient's floor/unit and/or counseling patient: Internal Medicine: Result - Labs CBC & Chem 7: 11/06/17 05:24 11/06/17 05:24 Labs: Short CBC 11/06/17 Range/Units 05:24 WBC 3.7 L (4.3-11.1) K/mcL Hgb 12.6 D (11.5-15.4) g/dL Hct 37.9 (35.3-44.9) % Plt Count 93 L (140-400) K/mcL Neutrophils # 1.9 (1.6-8.9) K/mcL BMP 11/06/17 05:24 Sodium 141 Potassium 3.4 L Chloride 107 Carbon Dioxide 27 BUN 16 Creatinine 1.13 Glucose 131 H Calcium 9.4 - Impressions Impressions Lumbar Spine X-Ray 11/05/17 00:31 IMPRESSION: Scoliosis with multilevel spondylolisthesis and degenerative disc disease with facet arthropathy. RECOMMENDATION: If there is further concern for infection, nerve root compression or disc herniation correlation to MRI imaging would be recommended. D/ / 11/05/2017 16:10:10 Zachary Craig MD / Christen Faulkner Interpreting Provider: Zachary Craig MD - VTE Reasons for not Prescribing Prophylaxis: Treatment not Indicated - Low risk for VTE Documentation of Mechanical Device: Intermittent pneumatic compression device Consult Discharge Plan - Plan Referrals: Matthew Phelan MD [Primary Care Provider] - (3) Back pain Qualifiers: Back pain location: thoracic back pain Chronicity: acute Back pain laterality: bilateral Qualified Code(s): M54.6 - Pain in thoracic spine (5) Dementia Qualifiers: Dementia type: unspecified type Dementia behavioral disturbance: without behavioral disturbance Qualified Code(s): F03.90 - Unspecified dementia without behavioral disturbance
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
[2017-11-06 16:00] VITALS: BP 116/68
--- NOTE | 2017-11-06 16:03 | Physician Discharge Referral ---
ExtendedCare Referral Info Transfer To: [facility] Provider in Charge: Loreta Luong Provider in Charge after Transfer: PCP Institutional Level of Care: Skilled - Diagnosis (1) Low blood potassium Priority: Secondary Status: Acute (2) Family conflict Priority: Primary Status: Acute (3) Back pain Priority: Secondary Status: Acute (4) CKD (chronic kidney disease) stage 3, GFR 30-59 ml/min Priority: Secondary Status: Acute (5) Dementia Priority: Secondary Status: Chronic - Transfer Medications Prescriptions: ALPRAZolam [Xanax 0.5 MG Tablet] 0.5 mg PO BID PRN 2 Days #4 tablet PRN Reason: Anxiety Home Medications: Albuterol Sulfate [Ventolin Hfa] 2 puff IH Q6H PRN 10/16/16 [History] Ammonium Lactate [Lac-Hydrin Five] 1 appl TP DAILY 10/16/16 [History] Cholecalciferol (Vitamin D3) [Vitamin D3] 1,000 unit PO DAILY 10/16/16 [History] Citalopram Hydrobromide [Citalopram HBr] 10 mg PO HS 10/16/16 [History] Docusate Sodium [Dok] 100 mg PO DAILY 10/16/16 [History] Esomeprazole Magnesium [Nexium] 40 mg PO DAILY 10/16/16 [History] Furosemide [Lasix] 20 mg PO QAM PRN 10/16/16 [History] Gabapentin [Neurontin] 400 mg PO QAM 10/16/16 [History] HYDROcodone/Acet 7.5/325 mg [[place] 7.5-325 mg] 1 tab PO TID PRN #15 10/16/16 [Rx ] Lidocaine Patch [Lidoderm 5% patch] 1 patch TP DAILY PRN 10/16/16 [History] Losartan Potassium [Cozaar] 100 mg PO DAILY 10/16/16 [History] Magnesium Oxide [Mag-Ox] 400 mg PO BID 10/16/16 [History] Saxagliptin HCl [Onglyza] 5 mg PO DAILY 10/16/16 [History] Trazodone HCl 200 mg PO HS 10/16/16 [History] BuPROPion SR (12 HR) [Wellbutrin SR] 150 mg PO BID 11/16/16 [History] Cyclosporine [Restasis] 1 drop PO BID 11/16/16 [History] Melatonin 10 mg PO HS 11/16/16 [History] Donepezil [Aricept] 10 mg PO HS 11/05/17 [History] Gabapentin [Neurontin] 800 mg PO HS 11/05/17 [History] Memantine HCl 10 mg PO BID 11/05/17 [History] ALPRAZolam [Xanax 0.5 MG Tablet] 0.5 mg PO BID PRN 2 Days #4 tablet 11/06/17 [Rx ] Allergies/Adverse Reactions: 3 Allergy/AdvReac Type Severity Reaction Status Date / Time No Known Allergies Allergy Verified 11/04/17 18:59 - Respiratory Orders Smoking Cessation: Smoking cessation has been advised. For more information, call the [place] Tobacco Quit Line at 4-081-ZQOGNOW. - Advance Directives Code Status: Full Code - Rehabiliation Orders Rehab Potential: Good Rehab Orders: Evaluation for Physical Therapy, Evaluation for Occupational Therapy - Diet Orders Regular CERTIFICATION: I certify that the transfer of the above named patient to an Extended Care Facility is necessary for the continuing treatment of the diagnosis listed. The above information is true and accurate reflection of patient's current condition. Confidential - Redisclosure prohibited without a patient's written consent.
== END 2017-11-06 17:02 ==
LOC: 3BNU 17:49 → EMEROOARM 17:49 → 3BNU 11-05 00:42
PROVIDERS: ADMIT Internal Medicine; ATTEND Internal Medicine